=== PATIENT | male | born 1935 | race African-American/Black ===

== ENCOUNTER 2021-05-30 12:04 | Inpatient (IN) ==
[2021-05-30 13:33] LABS: Basophils % 0.5 % (0.0-0.8); Eosinophils % 0.5 % (0.00-10.9); Hematocrit 33.9 VOL% (42.0-52.0); Hemoglobin 10.5 GM/DL (14.0-18.0); Immature Granulocytes % 0.8 %; Immature Granulocytes Absolute 0.03 #; Lymphocytes # 0.8 10*3/uL (1.4-4.0); Lymphocytes % 20.2 % (21.2-54.2); Mean Corpuscular Volume 89.9 FL (87-102); Mean Platelet Volume 9.9 FL (9.6-12.0); Monocytes % 10.9 % (1.7-12.7); Neutrophils % 67.1 % (38.7-73.9); Platelet Count 204 T/CUMM (130-400); Red Blood Count 3.77 MC/CUMM (3.8-5.5); Red Cell Distribution Width 15.1 % (9.3-17.3); White Blood Count 3.9 T/CUMM (4-12)
[2021-05-30 13:42] LABS: INR 1.1; PT Patient Result 12.1 SECS (10.5-12.0); Partial Thromboplastin Time 20.8 SECS (23.8-32.1)
[2021-05-30 13:57] LABS: Alanine Aminotransferase 32 U/L (16-61); Albumin 3.8 G/DL (3.4-5.0); Alkaline Phosphatase 86 U/L (45-117); Aspartate Amino Transferase 22 U/L (0-37); Blood Urea Nitrogen 22 MG/DL (7-18); Calcium 10.1 MG/DL (8.5-10.1); Carbon Dioxide 26 MMOL/L (21-32); Estimated Glom Filtration Rate 66 ML/MIN; Glucose 217 MG/DL (74-106); Osmolality,Calculated 290.3 MOS/KG (273-304); Potassium 3.4 MMOL/L (3.5-5.1); Sodium 141 MMOL/L (136-145); Total Protein 7.6 G/DL (6.4-8.2)
[2021-05-30] MEDS ORDERED: DILTIAZEM 50 MG/10 ML VIAL IV STA (14:13)
[2021-05-30] MEDS: DILTIAZEM INJ 100 MG in SODIUM CHLORIDE 0.9% 100 ML IV SCH ×2 (14:50→20:41)
[2021-05-30 14:52] LABS: Bilirubin,Urine Negative (Negative); Blood, Urine Negative (Negative); Glucose,Urine (UA) Negative (Negative); Hyaline Casts,Urine 4 /LPF (0-3); Ketones,Urine Negative (Negative); Mucus,Urine Occasional /LPF (Occasional); Nitrite,Urine Negative (Negative); Protein,Urine 100 MG/DL; RBC,Urine 2 /HPF (0-4); Urine Appearance CLEAR (Clear); Urine Color Yellow (Yellow); Urine Specific Gravity 1.017 (1.001-1.035)
[2021-05-30] MEDS ORDERED: ONDANSETRON 4 MG/2 ML VIAL IV PRN (16:05)
[2021-05-30] MEDS ORDERED: GLUCAGON 1 MG VIAL IM PRN (16:05)
[2021-05-30] MEDS ORDERED: ACETAMINOPHEN 325 MG TABLET PO PRN (16:05)
[2021-05-30] MEDS ORDERED: ASPIRIN 300 MG SUPP RECTAL STA (16:09)
[2021-05-30] MEDS ORDERED: AZITHROMYCIN INJ 500 MG in SODIUM CHLORIDE 0.9% 250 ML IV STA (16:11)
[2021-05-30] MEDS ORDERED: cefTRIAXone 1,000 MG VIAL IM STA (16:11)
[2021-05-30] MEDS ORDERED: DEXTROSE 50% 25 GM/50 ML SYRINGE IV PRN (16:12)
[2021-05-30] MEDS: INSULIN LISPRO 100 UNIT/ML SUBCUT SCH ×2 (16:30→22:39)
[2021-05-30 16:57] LABS: Risk Ratio 2.31; VLDL Cholesterol 12.6 MG/DL
[2021-05-30] MEDS: cefTRIAXone 1,000 MG in SODIUM CHLORIDE 0.9% 100 ML IV SCH (19:13)
[2021-05-30] MEDS: POTASSIUM CHLORIDE RIDER 10 MEQ/100 ML PREMIX IV SCH ×2 (19:45→20:50)
[2021-05-30] MEDS ORDERED: LORazepam 2 MG/1 ML VIAL IV STA (20:00)
[2021-05-30] MEDS: APIXABAN 2.5 MG TABLET PO SCH (22:38)
[2021-05-30] MEDS: MEGESTROL 40 MG TABLET PO SCH (22:39)
[2021-05-30] MEDS: MEMANTINE 5 MG TABLET PO SCH (22:39)
[2021-05-31 01:34] LABS: Basophils % 0.4 % (0.0-0.8); Eosinophils % 0.2 % (0.00-10.9); Hematocrit 32.7 VOL% (42.0-52.0); Hemoglobin 10.1 GM/DL (14.0-18.0); Immature Granulocytes % 0.4 %; Immature Granulocytes Absolute 0.02 #; Mean Corpuscular HGB Conc 30.9 GM/DL (32-36); Mean Corpuscular Volume 90.3 FL (87-102); Monocytes % 12.5 % (1.7-12.7); Neutrophils % 68.5 % (38.7-73.9); Platelet Count 179 T/CUMM (130-400); Red Blood Count 3.62 MC/CUMM (3.8-5.5); Red Cell Distribution Width 15.2 % (9.3-17.3); White Blood Count 5.5 T/CUMM (4-12)
[2021-05-31 01:50] LABS: Calcium 9.5 MG/DL (8.5-10.1); Osmolality,Calculated 288.1 MOS/KG (273-304); Potassium 3.6 MMOL/L (3.5-5.1)
[2021-05-31] MEDS: INSULIN LISPRO 100 UNIT/ML SUBCUT SCH ×4 (08:34→21:46)
[2021-05-31] MEDS: DILTIAZEM 30 MG TABLET PO SCH ×4 (08:50→21:28)
[2021-05-31] MEDS: MEMANTINE 5 MG TABLET PO SCH ×2 (08:50→21:28)
[2021-05-31] MEDS: MEGESTROL 40 MG TABLET PO SCH ×2 (08:50→21:28)
[2021-05-31] MEDS: APIXABAN 2.5 MG TABLET PO SCH (08:51)
[2021-05-31] MEDS: ASPIRIN 300 MG SUPP RECTAL SCH (14:24)
[2021-05-31] MEDS: cefTRIAXone 1,000 MG in SODIUM CHLORIDE 0.9% 100 ML IV SCH (16:42)
[2021-05-31] MEDS: AZITHROMYCIN INJ 250 MG in SODIUM CHLORIDE 0.9% 250 ML IV SCH (18:17)
[2021-05-31] MEDS: ATORVASTATIN 80 MG TABLET PO SCH (21:28)
[2021-05-31] MEDS: APIXABAN 5 MG TABLET PO SCH (21:28)
[2021-05-31] MEDS ORDERED: MELATONIN 3 MG TABLET PO PRN (23:44)
[2021-06-01 06:09] LABS: Basophils % 0.5 % (0.0-0.8); Eosinophils % 0.5 % (0.00-10.9); Hematocrit 33.4 VOL% (42.0-52.0); Hemoglobin 10.7 GM/DL (14.0-18.0); Immature Granulocytes % 0.7 %; Immature Granulocytes Absolute 0.04 #; Lymphocytes # 1.1 10*3/uL (1.4-4.0); Lymphocytes % 18.4 % (21.2-54.2); Mean Corpuscular Volume 89.3 FL (87-102); Mean Platelet Volume 10.2 FL (9.6-12.0); Monocytes % 10.2 % (1.7-12.7); Neutrophils % 69.7 % (38.7-73.9); Platelet Count 205 T/CUMM (130-400); Red Blood Count 3.74 MC/CUMM (3.8-5.5); Red Cell Distribution Width 15.1 % (9.3-17.3); White Blood Count 5.7 T/CUMM (4-12)
[2021-06-01 06:13] LABS: Calcium 9.7 MG/DL (8.5-10.1); Osmolality,Calculated 280.5 MOS/KG (273-304); Potassium 3.3 MMOL/L (3.5-5.1)
[2021-06-01] MEDS: INSULIN LISPRO 100 UNIT/ML SUBCUT SCH ×4 (07:38→22:10)
[2021-06-01] MEDS: MEGESTROL 40 MG TABLET PO SCH ×2 (09:05→22:10)
[2021-06-01] MEDS: DILTIAZEM 60 MG TABLET PO SCH ×3 (09:06→22:10)
[2021-06-01] MEDS: MEMANTINE 5 MG TABLET PO SCH ×2 (09:06→22:10)
[2021-06-01] MEDS: APIXABAN 5 MG TABLET PO SCH ×2 (09:07→22:10)
[2021-06-01] MEDS: POTASSIUM CHLORIDE RIDER 10 MEQ/100 ML PREMIX IV PRN ×4 (10:51→16:53)
[2021-06-01] MEDS ORDERED: FUROSEMIDE 20 MG/2 ML VIAL IV ONE (11:14)
[2021-06-01] MEDS: ASPIRIN 300 MG SUPP RECTAL SCH (11:19)
[2021-06-01 16:06] LABS: Bacteria,Urine Occasional /HPF (Few); Bilirubin,Urine Negative (Negative); Blood, Urine Large mg/dL (Negative); Glucose,Urine (UA) Negative (Negative); Ketones,Urine Negative (Negative); Mucus,Urine Occasional /LPF (Occasional); Nitrite,Urine Negative (Negative); Protein,Urine 30 MG/DL; RBC,Urine 101 /HPF (0-4); Squamous Epithelial Cell,Urine Occasional /HPF (0-10); Urine Appearance CLEAR (Clear); Urine Color Straw (Yellow); Urine Specific Gravity 1.009 (1.001-1.035); Urine Urobilinogen < 2.0 EU/DL (<2.0)
[2021-06-01] MEDS: cefTRIAXone 1,000 MG in SODIUM CHLORIDE 0.9% 100 ML IV SCH (16:32)
[2021-06-01] MEDS: AZITHROMYCIN INJ 250 MG in SODIUM CHLORIDE 0.9% 250 ML IV SCH (17:31)
[2021-06-01] MEDS: ATORVASTATIN 80 MG TABLET PO SCH (22:10)
[2021-06-02 05:58] LABS: Basophils % 0.6 % (0.0-0.8); Eosinophils % 0.8 % (0.00-10.9); Hemoglobin 10.2 GM/DL (14.0-18.0); Immature Granulocytes % 0.4 %; Immature Granulocytes Absolute 0.02 #; Lymphocytes % 19.4 % (21.2-54.2); Mean Corpuscular HGB Conc 31.9 GM/DL (32-36); Mean Corpuscular Volume 87.9 FL (87-102); Mean Platelet Volume 9.6 FL (9.6-12.0); Monocytes % 11.1 % (1.7-12.7); Neutrophils % 67.7 % (38.7-73.9); Platelet Count 179 T/CUMM (130-400); Red Blood Count 3.64 MC/CUMM (3.8-5.5)
[2021-06-02 06:15] LABS: Osmolality,Calculated 277.7 MOS/KG (273-304); Potassium 3.2 MMOL/L (3.5-5.1)
[2021-06-02] MEDS: INSULIN LISPRO 100 UNIT/ML SUBCUT SCH (08:06)
[2021-06-02] MEDS ORDERED: ASPIRIN EC 81 MG TABLET PO SCH (09:00)
[2021-06-02] MEDS: ASPIRIN 300 MG SUPP RECTAL SCH (09:27)
[2021-06-02] MEDS: APIXABAN 5 MG TABLET PO SCH (09:34)
[2021-06-02] MEDS: MEMANTINE 5 MG TABLET PO SCH (09:34)
[2021-06-02] MEDS: DILTIAZEM 60 MG TABLET PO SCH (09:35)
[2021-06-02] MEDS: MEGESTROL 40 MG TABLET PO SCH (09:35)
[2021-06-02 11:27] VITALS: BP 124/94
== END 2021-06-02 11:48 | DRG 64 ==
LOC: EDBD → SUATTDRO → EDUNIT# → N.ED 12:04 → N.EDINP 16:05 → N.TELES 20:06
PROVIDERS: ADMIT Internal Medicine; ATTEND Internal Medicine

== ENCOUNTER 2021-06-16 08:24 | Inpatient (IN) ==
[2021-06-16] MEDS ORDERED: DILTIAZEM 50 MG/10 ML VIAL IV STA (09:46)
[2021-06-16] MEDS ORDERED: DILTIAZEM INJ 100 MG in SODIUM CHLORIDE 0.9% 100 ML IV SCH (10:00)
[2021-06-16 10:36] LABS: Basophils % 0.6 % (0.0-0.8); Eosinophils % 0.2 % (0.00-10.9); Hematocrit 31.8 VOL% (42.0-52.0); Hemoglobin 9.9 GM/DL (14.0-18.0); Immature Granulocytes % 0.4 %; Immature Granulocytes Absolute 0.02 #; Lymphocytes # 0.9 10*3/uL (1.4-4.0); Lymphocytes % 18.6 % (21.2-54.2); Mean Corpuscular HGB Conc 31.1 GM/DL (32-36); Mean Corpuscular Volume 87.6 FL (87-102); Mean Platelet Volume 10.4 FL (9.6-12.0); Monocytes % 11.4 % (1.7-12.7); Neutrophils % 68.8 % (38.7-73.9); Platelet Count 283 T/CUMM (130-400); Red Blood Count 3.63 MC/CUMM (3.8-5.5); Red Cell Distribution Width 15.9 % (9.3-17.3); White Blood Count 4.8 T/CUMM (4-12)
[2021-06-16 10:48] LABS: INR 1.2
[2021-06-16 10:49] LABS: Albumin 3.8 G/DL (3.4-5.0); Bilirubin,Total 0.6 MG/DL (0.20-1.00); Calcium 10.2 MG/DL (8.5-10.1); Osmolality,Calculated 294.4 MOS/KG (273-304); Potassium 4.1 MMOL/L (3.5-5.1)
[2021-06-16] MEDS ORDERED: DEXAMETHASONE 4 MG/1 ML VIAL IV STA (11:31)
[2021-06-16 11:49] LABS: Bilirubin,Urine Negative (Negative); Blood, Urine Negative (Negative); Glucose,Urine (UA) Negative (Negative); Hyaline Casts,Urine 4 /LPF (0-3); Ketones,Urine 5 mg/dL (Negative); Mucus,Urine Moderate /LPF (Occasional); Nitrite,Urine Negative (Negative); Protein,Urine 100 MG/DL; RBC,Urine 2 /HPF (0-4); Urine Appearance CLEAR (Clear); Urine Color Yellow (Yellow); Urine Specific Gravity 1.038 (1.001-1.035); Urine Urobilinogen < 2.0 EU/DL (<2.0)
[2021-06-16] MEDS ORDERED: ONDANSETRON 4 MG/2 ML VIAL IV PRN (12:05)
[2021-06-16] MEDS: LORazepam 2 MG/1 ML VIAL IV PRN (18:44)
[2021-06-16] MEDS: MORPHINE 2 MG/1 ML SYRINGE IV PRN (23:52)
[2021-06-17] MEDS: LORazepam 2 MG/1 ML VIAL IV PRN ×3 (03:24→19:32)
[2021-06-17] MEDS: MORPHINE 2 MG/1 ML SYRINGE IV PRN ×4 (06:13→22:53)
[2021-06-18] MEDS: LORazepam 2 MG/1 ML VIAL IV PRN ×2 (00:30→10:15)
[2021-06-18] MEDS: MORPHINE 2 MG/1 ML SYRINGE IV PRN (09:01)
[2021-06-18 12:32] VITALS: BP 127/104
== END 2021-06-18 14:02 | disposition hospice, inpatient (51) | DRG 951 ==
LOC: EDBD → EDUNIT# → N.ED 08:24 → N.EDINP 12:02 → SUATTDRO 12:02 → N.EDINP 16:38 → N.TELEN 17:01
PROVIDERS: ADMIT Internal Medicine; ATTEND Hospitalist

== ENCOUNTER 2021-06-21 11:52 | Inpatient (IN) ==
[2021-06-21] MEDS ORDERED: DILTIAZEM 50 MG/10 ML VIAL IV STA (12:14)
[2021-06-21] MEDS ORDERED: ETOMIDATE 20 MG/10 ML VIAL IV ONE ×3 (12:24→15:05)
[2021-06-21] MEDS: DILTIAZEM INJ 100 MG in SODIUM CHLORIDE 0.9% 100 ML IV SCH ×2 (12:30→22:05)
[2021-06-21] MEDS ORDERED: ROCURONIUM 100 MG/10 ML VIAL IV ONE ×2 (12:33→15:07)
[2021-06-21 12:50] LABS: Eosinophils % 0.1 % (0.00-10.9); Hematocrit 30.8 VOL% (42.0-52.0); Hemoglobin 9.3 GM/DL (14.0-18.0); Immature Granulocytes % 0.7 %; Immature Granulocytes Absolute 0.06 #; Lymphocytes # 0.5 10*3/uL (1.4-4.0); Lymphocytes % 5.9 % (21.2-54.2); Mean Corpuscular HGB Conc 30.2 GM/DL (32-36); Mean Platelet Volume 11.4 FL (9.6-12.0); Monocytes % 7.3 % (1.7-12.7); NRBC # 0.06 10*3/uL; Platelet Count 213 T/CUMM (130-400); Red Blood Count 3.46 MC/CUMM (3.8-5.5); Red Cell Distribution Width 16.1 % (9.3-17.3)
[2021-06-21 12:59] LABS: INR 1.7; PT Patient Result 18.4 SECS (10.5-12.0); Partial Thromboplastin Time 25.9 SECS (23.8-32.1)
[2021-06-21 13:10] LABS: Bilirubin,Total 1.5 MG/DL (0.20-1.00); Calcium 10.2 MG/DL (8.5-10.1); Osmolality,Calculated 326.7 MOS/KG (273-304); Potassium 4.3 MMOL/L (3.5-5.1); Thyroid Stimulating Hormone 1.85 uIU/ml (0.358-3.74); Total Protein 6.5 G/DL (6.4-8.2)
[2021-06-21] MEDS ORDERED: ALBUTEROL 2.5 MG/3 ML NEB RESP TX PRN (13:39)
[2021-06-21] MEDS ORDERED: ONDANSETRON 4 MG/2 ML VIAL IV PRN (13:39)
[2021-06-21 14:21] LABS: ABG Base Excess -3.7 MMOL/L (-2.5-2.5); ABG HCO3 21.4 MMOL/L (20-26); ABG Oxygen Saturation 99.9 % (95-100); ABG PCO2 30.8 MM HG (35-48); ABG PH 7.421 (7.35-7.45); ABG TCO2 18.2 MMOL/L (23-27)
[2021-06-21] MEDS: PANTOPRAZOLE 40 MG VIAL IV SCH (14:21)
[2021-06-21] MEDS: cefTRIAXone 1,000 MG in SODIUM CHLORIDE 0.9% 100 ML IV SCH (14:27)
[2021-06-21] MEDS: LACTATED RINGERS 1,000 ML IV SCH ×2 (15:00→23:45)
[2021-06-21 15:58] LABS: Bilirubin,Urine Negative (Negative); Blood, Urine Negative (Negative); Glucose,Urine (UA) Negative (Negative); Hyaline Casts,Urine 5 /LPF (0-3); Ketones,Urine 5 mg/dL (Negative); Mucus,Urine Occasional /LPF (Occasional); Nitrite,Urine Negative (Negative); Protein,Urine 100 MG/DL; RBC,Urine 2 /HPF (0-4); Urine Appearance Slightly Hazy (Clear); Urine Color Amber (Yellow); Urine Specific Gravity 1.023 (1.001-1.035)
[2021-06-21 17:10] LABS: Barbiturates Screen,Urine Negative (Negative); Benzodiazepines Screen,Urine Negative (Negative); Cannabinoid Screen,Urine Negative (Negative); Opiate Screen,Urine Positive (Negative); Phencyclidine Screen,Urine Negative (Negative)
[2021-06-22] MEDS: DILTIAZEM INJ 100 MG in SODIUM CHLORIDE 0.9% 100 ML IV SCH ×3 (03:19→17:45)
[2021-06-22 05:07] LABS: Calcium 9.9 MG/DL (8.5-10.1); Osmolality,Calculated 321.9 MOS/KG (273-304); Potassium 4.1 MMOL/L (3.5-5.1)
[2021-06-22 05:18] LABS: Basophils % 0.1 % (0.0-0.8); Eosinophils % 0.5 % (0.00-10.9); Hemoglobin 9.6 GM/DL (14.0-18.0); Immature Granulocytes % 0.5 %; Immature Granulocytes Absolute 0.04 #; Lymphocytes # 0.4 10*3/uL (1.4-4.0); Lymphocytes % 4.8 % (21.2-54.2); Mean Corpuscular Volume 89.9 FL (87-102); Mean Platelet Volume 11.5 FL (9.6-12.0); Monocytes % 6.6 % (1.7-12.7); NRBC # 0.04 10*3/uL; Neutrophils % 87.5 % (38.7-73.9); Platelet Count 183 T/CUMM (130-400); Red Blood Count 3.56 MC/CUMM (3.8-5.5); Red Cell Distribution Width 16.1 % (9.3-17.3); White Blood Count 7.8 T/CUMM (4-12)
[2021-06-22 06:17] LABS: Hypochromia Slight; Lymphocytes 3 % (20-55); Microcytosis Slight; Platelet Estimate Adequate; Segmented Neutrophils 92 % (50-85); Total Cells Counted 100
[2021-06-22 06:26] LABS: Bilirubin,Urine Negative (Negative); Blood, Urine Moderate mg/dL (Negative); Glucose,Urine (UA) Negative (Negative); Ketones,Urine 5 mg/dL (Negative); Mucus,Urine Occasional /LPF (Occasional); Nitrite,Urine Negative (Negative); Protein,Urine 30 MG/DL; RBC,Urine 7 /HPF (0-4); Urine Appearance Slightly Hazy (Clear); Urine Color Yellow (Yellow); Urine Specific Gravity 1.019 (1.001-1.035)
[2021-06-22 06:39] LABS: ABG Base Excess -0.7 MMOL/L (-2.5-2.5); ABG HCO3 23.9 MMOL/L (20-26); ABG Oxygen Saturation 99.7 % (95-100); ABG PCO2 36.9 MM HG (35-48); ABG PH 7.414 (7.35-7.45); ABG TCO2 21.6 MMOL/L (23-27)
[2021-06-22] MEDS: LACTATED RINGERS 1,000 ML IV SCH ×4 (07:07→23:31)
[2021-06-22] MEDS ORDERED: LACTATED RINGERS 1,000 ML IV SCH (11:00)
[2021-06-22 11:24] LABS: Calcium 9.3 MG/DL (8.5-10.1); Osmolality,Calculated 318.9 MOS/KG (273-304); Potassium 3.7 MMOL/L (3.5-5.1)
[2021-06-22 11:37] LABS: INR 1.5; PT Patient Result 16.4 SECS (10.5-12.0)
[2021-06-22] MEDS: cefTRIAXone 1,000 MG in SODIUM CHLORIDE 0.9% 100 ML IV SCH (14:17)
[2021-06-22] MEDS: PANTOPRAZOLE 40 MG VIAL IV SCH (15:50)
[2021-06-22] MEDS ORDERED: GLUCAGON 1 MG VIAL IM PRN (16:10)
[2021-06-22] MEDS ORDERED: DEXTROSE 50% 25 GM/50 ML SYRINGE IV PRN (16:18)
[2021-06-22] MEDS: INSULIN REGULAR 100 UNIT/ML SUBCUT SCH ×2 (18:56→23:25)
[2021-06-23] MEDS: DILTIAZEM INJ 100 MG in SODIUM CHLORIDE 0.9% 100 ML IV SCH ×2 (00:46→14:50)
[2021-06-23 04:04] LABS: ABG Base Excess 1.5 MMOL/L (-2.5-2.5); ABG HCO3 25.7 MMOL/L (20-26); ABG Oxygen Saturation 99.4 % (95-100); ABG PCO2 32.5 MM HG (35-48); ABG PH 7.486 (7.35-7.45); ABG TCO2 22.5 MMOL/L (23-27); Allen Test Positive; Pt O2 Delivery Device Ventilator
[2021-06-23 05:22] LABS: Eosinophils % 0.1 % (0.00-10.9); Hematocrit 29.8 VOL% (42.0-52.0); Hemoglobin 9.1 GM/DL (14.0-18.0); Immature Granulocytes % 0.4 %; Immature Granulocytes Absolute 0.03 #; Lymphocytes # 0.4 10*3/uL (1.4-4.0); Lymphocytes % 5.5 % (21.2-54.2); Mean Corpuscular HGB Conc 30.5 GM/DL (32-36); Mean Corpuscular Volume 89.2 FL (87-102); Mean Platelet Volume 11.2 FL (9.6-12.0); Monocytes % 7.6 % (1.7-12.7); NRBC # 0.03 10*3/uL; Neutrophils % 86.4 % (38.7-73.9); Platelet Count 145 T/CUMM (130-400); Red Blood Count 3.34 MC/CUMM (3.8-5.5); Red Cell Distribution Width 16.1 % (9.3-17.3); White Blood Count 7.1 T/CUMM (4-12)
[2021-06-23 05:44] LABS: Calcium 9.7 MG/DL (8.5-10.1); Osmolality,Calculated 321.4 MOS/KG (273-304); Potassium 3.7 MMOL/L (3.5-5.1)
[2021-06-23 05:48] LABS: Burr Cells Slight; Hypochromia Slight; Lymphocytes 2 % (20-55); Microcytosis Slight; Ovalocytes Slight; Platelet Estimate Adequate; Segmented Neutrophils 93 % (50-85); Total Cells Counted 100
[2021-06-23] MEDS: INSULIN REGULAR 100 UNIT/ML SUBCUT SCH ×3 (06:12→17:36)
[2021-06-23] MEDS ORDERED: PANTOPRAZOLE 40 MG VIAL IV SCH (09:00)
[2021-06-23] MEDS ORDERED: POTASSIUM PHOSPHATE 30 MMOL in SODIUM CHLORIDE 0.9% 250 ML IV ONE (10:00)
[2021-06-23] MEDS ORDERED: ONDANSETRON 4 MG/2 ML VIAL IM PRN (13:45)
[2021-06-23] MEDS ORDERED: MORPHINE 2 MG/1 ML SYRINGE IM PRN (13:45)
[2021-06-23] MEDS ORDERED: DIGOXIN 0.5 MG/2 ML AMP IV ONE (13:46)
[2021-06-23] MEDS: DILTIAZEM 30 MG TABLET PO PRN ×2 (14:17→23:36)
[2021-06-23] MEDS: cefTRIAXone 1,000 MG in SODIUM CHLORIDE 0.9% 100 ML IV SCH (14:17)
[2021-06-23] MEDS: LACTATED RINGERS 1,000 ML IV SCH (14:51)
[2021-06-24] MEDS: INSULIN REGULAR 100 UNIT/ML SUBCUT SCH ×4 (00:34→17:58)
[2021-06-24 04:31] LABS: ABG Base Excess 1.5 MMOL/L (-2.5-2.5); ABG HCO3 24.6 MMOL/L (20-26); ABG Oxygen Saturation 97.9 % (95-100); ABG PCO2 32.6 MM HG (35-48); ABG PH 7.495 (7.35-7.45); ABG PO2 103.3 MM HG (80-95); ABG TCO2 25.6 MMOL/L (23-27)
[2021-06-24 05:01] LABS: Basophils % 0.1 % (0.0-0.8); Eosinophils % 0.3 % (0.00-10.9); Hematocrit 28.6 VOL% (42.0-52.0); Hemoglobin 8.7 GM/DL (14.0-18.0); Immature Granulocytes % 0.5 %; Immature Granulocytes Absolute 0.04 #; Lymphocytes # 0.6 10*3/uL (1.4-4.0); Lymphocytes % 7.4 % (21.2-54.2); Mean Corpuscular HGB Conc 30.4 GM/DL (32-36); Mean Corpuscular Volume 87.2 FL (87-102); Mean Platelet Volume 12.8 FL (9.6-12.0); Monocytes % 7.9 % (1.7-12.7); NRBC # 0.04 10*3/uL; Neutrophils % 83.8 % (38.7-73.9); Red Blood Count 3.28 MC/CUMM (3.8-5.5); Red Cell Distribution Width 16.1 % (9.3-17.3); White Blood Count 7.6 T/CUMM (4-12)
[2021-06-24 05:04] LABS: Platelet Count 98 T/CUMM (130-400)
[2021-06-24 05:14] LABS: Calcium 9.8 MG/DL (8.5-10.1); Osmolality,Calculated 318.7 MOS/KG (273-304); Potassium 3.6 MMOL/L (3.5-5.1)
[2021-06-24 05:21] LABS: Acanthocytes Few; Hypochromia 1+; Microcytosis 1+
[2021-06-24 05:22] LABS: Burr Cells Slight; Ovalocytes Few; Target Cells Few
[2021-06-24] MEDS: cefTRIAXone 1,000 MG in SODIUM CHLORIDE 0.9% 100 ML IV SCH (09:53)
[2021-06-24] MEDS: OMEPRAZOLE ODT 20 MG TABLET PEG SCH (09:56)
[2021-06-24] MEDS: DIGOXIN 0.25 MG TABLET PEG SCH (12:47)
[2021-06-25] MEDS: INSULIN REGULAR 100 UNIT/ML SUBCUT SCH ×4 (00:49→18:48)
[2021-06-25 06:14] LABS: Calcium 9.8 MG/DL (8.5-10.1); Osmolality,Calculated 320.9 MOS/KG (273-304); Potassium 3.7 MMOL/L (3.5-5.1)
[2021-06-25] MEDS: cefTRIAXone 1,000 MG in SODIUM CHLORIDE 0.9% 100 ML IV SCH (10:40)
[2021-06-25] MEDS: DILTIAZEM 30 MG TABLET PO SCH ×3 (10:44→22:00)
[2021-06-25] MEDS: OMEPRAZOLE ODT 20 MG TABLET PEG SCH (10:49)
[2021-06-25] MEDS: DIGOXIN 0.25 MG TABLET PEG SCH (13:35)
[2021-06-25] MEDS: ACETYLCYSTEINE 20% 800 MG/4 ML VIAL RESP TX SCH (14:55)
[2021-06-25] MEDS: ALBUTEROL 2.5 MG/3 ML NEB RESP TX SCH ×2 (14:55→21:04)
[2021-06-26] MEDS: ACETYLCYSTEINE 20% 800 MG/4 ML VIAL RESP TX SCH ×3 (01:42→14:53)
[2021-06-26] MEDS: ALBUTEROL 2.5 MG/3 ML NEB RESP TX SCH ×4 (01:43→21:01)
[2021-06-26] MEDS: INSULIN REGULAR 100 UNIT/ML SUBCUT SCH ×4 (06:00→17:58)
[2021-06-26 10:03] LABS: Calcium 9.1 MG/DL (8.5-10.1); Osmolality,Calculated 309.4 MOS/KG (273-304); Potassium 3.7 MMOL/L (3.5-5.1)
[2021-06-26] MEDS: cefTRIAXone 1,000 MG in SODIUM CHLORIDE 0.9% 100 ML IV SCH (11:43)
[2021-06-26] MEDS: OMEPRAZOLE ODT 20 MG TABLET PEG SCH (11:43)
[2021-06-26] MEDS: DILTIAZEM 30 MG TABLET PO SCH ×3 (11:44→22:13)
[2021-06-26] MEDS: DIGOXIN 0.25 MG TABLET PEG SCH (13:45)
[2021-06-27] MEDS: ACETYLCYSTEINE 20% 800 MG/4 ML VIAL RESP TX SCH ×3 (00:40→15:12)
[2021-06-27] MEDS: ALBUTEROL 2.5 MG/3 ML NEB RESP TX SCH ×3 (00:40→14:10)
[2021-06-27] MEDS: INSULIN REGULAR 100 UNIT/ML SUBCUT SCH ×3 (01:38→14:35)
[2021-06-27 08:48] LABS: Calcium 8.8 MG/DL (8.5-10.1); Osmolality,Calculated 301.4 MOS/KG (273-304); Potassium 3.4 MMOL/L (3.5-5.1)
[2021-06-27] MEDS: DILTIAZEM 30 MG TABLET PO SCH ×2 (09:03→14:35)
[2021-06-27] MEDS: cefTRIAXone 1,000 MG in SODIUM CHLORIDE 0.9% 100 ML IV SCH (09:03)
[2021-06-27] MEDS: OMEPRAZOLE ODT 20 MG TABLET PEG SCH (09:05)
[2021-06-27] MEDS ORDERED: POTASSIUM BICARB EFFERVESCENT 20 MEQ TAB.EFF PO ONE (11:30)
[2021-06-27 12:10] VITALS: BP 152/87
[2021-06-27] MEDS: DIGOXIN 0.25 MG TABLET PEG SCH (14:35)
== END 2021-06-27 17:22 | DRG 208 ==
LOC: EDBD → EDUNIT# → N.ED 11:52 → SUATTDRO 13:39 → N.EDINP 13:39 → N.ICU 14:46 → N.5E 06-23 16:55
PROVIDERS: ADMIT Internal Medicine; ATTEND Internal Medicine
PROC: EGDWPEG (ICD-10-PCS; 2021-06-22 11:50)

== ENCOUNTER 2021-06-28 08:43 | Inpatient (IN) ==
[2021-06-28] MEDS ORDERED: PANTOPRAZOLE 40 MG VIAL IV STA (09:12)
[2021-06-28 10:38] LABS: Basophils % 0.1 % (0.0-0.8); Eosinophils # 0.1 10*3/uL (0.0-0.87); Eosinophils % 0.5 % (0.00-10.9); Immature Granulocytes % 0.9 %; Immature Granulocytes Absolute 0.08 #; Lymphocytes # 0.7 10*3/uL (1.4-4.0); Lymphocytes % 7.9 % (21.2-54.2); Mean Corpuscular HGB Conc 30.8 GM/DL (32-36); Mean Corpuscular Volume 86.7 FL (87-102); Mean Platelet Volume 11.7 FL (9.6-12.0); Monocytes % 7.9 % (1.7-12.7); NRBC # 0.03 10*3/uL; Neutrophils % 82.7 % (38.7-73.9); Platelet Count 143 T/CUMM (130-400); Red Cell Distribution Width 16.6 % (9.3-17.3); White Blood Count 9.1 T/CUMM (4-12)
[2021-06-28 10:50] LABS: INR 1.2; PT Patient Result 12.9 SECS (10.5-12.0)
[2021-06-28 11:05] LABS: Albumin 2.3 G/DL (3.4-5.0); Bilirubin,Total 1.9 MG/DL (0.20-1.00); Calcium 9.1 MG/DL (8.5-10.1); Osmolality,Calculated 298.4 MOS/KG (273-304); Potassium 4.1 MMOL/L (3.5-5.1); Total Protein 5.8 G/DL (6.4-8.2)
[2021-06-28] MEDS ORDERED: GLUCAGON 1 MG VIAL IM PRN (11:05)
[2021-06-28] MEDS ORDERED: ONDANSETRON 4 MG/2 ML VIAL IV PRN (11:05)
[2021-06-28] MEDS ORDERED: ACETAMINOPHEN 325 MG TABLET PO PRN (11:05)
[2021-06-28] MEDS ORDERED: DEXTROSE 50% 25 GM/50 ML SYRINGE IV PRN (11:05)
[2021-06-28] MEDS ORDERED: ALBUTEROL 2.5 MG/3 ML NEB RESP TX PRN (11:07)
[2021-06-28] MEDS: INSULIN LISPRO 100 UNIT/ML SUBCUT SCH ×2 (12:54→19:05)
[2021-06-28 14:31] LABS: Hematocrit 23.4 VOL% (42.0-52.0); Hemoglobin 7.3 GM/DL (14.0-18.0)
[2021-06-28] MEDS ORDERED: SODIUM CHLORIDE 0.9% 1,000 ML IV PRN (14:39)
[2021-06-28 17:20] LABS: Hematocrit 22.1 VOL% (42.0-52.0)
[2021-06-28] MEDS: DILTIAZEM 30 MG TABLET PO SCH ×2 (18:38→21:20)
[2021-06-28] MEDS ORDERED: ATORVASTATIN 80 MG TABLET PEG SCH (21:00)
[2021-06-28] MEDS: PANTOPRAZOLE 40 MG VIAL IV SCH (21:18)
[2021-06-28] MEDS: AMOXICILLIN/CLAV 875 MG TABLET PEG SCH (21:20)
[2021-06-28] MEDS: MEMANTINE 5 MG TABLET PER TUBE SCH (21:20)
[2021-06-28 23:25] LABS: Hematocrit 26.4 VOL% (42.0-52.0)
[2021-06-28 23:27] LABS: Hemoglobin 8.2 GM/DL (14.0-18.0)
[2021-06-29] MEDS: INSULIN LISPRO 100 UNIT/ML SUBCUT SCH ×4 (00:42→18:37)
[2021-06-29 05:11] LABS: Basophils % 0.2 % (0.0-0.8); Eosinophils % 0.2 % (0.00-10.9); Hematocrit 24.7 VOL% (42.0-52.0); Immature Granulocytes % 0.6 %; Immature Granulocytes Absolute 0.05 #; Lymphocytes # 1.1 10*3/uL (1.4-4.0); Mean Corpuscular HGB Conc 32.4 GM/DL (32-36); Mean Corpuscular Volume 82.3 FL (87-102); Mean Platelet Volume 11.3 FL (9.6-12.0); NRBC # 0.06 10*3/uL; Platelet Count 142 T/CUMM (130-400); Red Cell Distribution Width 17.8 % (9.3-17.3); White Blood Count 8.6 T/CUMM (4-12)
[2021-06-29 05:15] LABS: Hematocrit 25.9 VOL% (42.0-52.0); Hemoglobin 8.2 GM/DL (14.0-18.0)
[2021-06-29 05:40] LABS: Calcium 9.1 MG/DL (8.5-10.1); Osmolality,Calculated 300.7 MOS/KG (273-304); Potassium 3.7 MMOL/L (3.5-5.1)
[2021-06-29 10:03] LABS: Albumin 2.1 G/DL (3.4-5.0)
[2021-06-29] MEDS: DILTIAZEM 30 MG TABLET PO SCH ×3 (10:43→22:22)
[2021-06-29] MEDS: AMOXICILLIN/CLAV 875 MG TABLET PEG SCH ×2 (10:43→22:22)
[2021-06-29] MEDS: PANTOPRAZOLE 40 MG VIAL IV SCH ×2 (10:44→22:20)
[2021-06-29] MEDS: MEMANTINE 5 MG TABLET PER TUBE SCH ×2 (10:44→22:23)
[2021-06-29] MEDS: DIGOXIN 0.25 MG TABLET PEG SCH (18:29)
[2021-06-30] MEDS: INSULIN LISPRO 100 UNIT/ML SUBCUT SCH ×4 (02:24→17:36)
[2021-06-30 06:35] LABS: Basophils % 0.1 % (0.0-0.8); Eosinophils # 0.1 10*3/uL (0.0-0.87); Eosinophils % 0.7 % (0.00-10.9); Immature Granulocytes % 0.9 %; Immature Granulocytes Absolute 0.07 #; Lymphocytes % 12.7 % (21.2-54.2); Mean Corpuscular HGB Conc 30.8 GM/DL (32-36); Mean Corpuscular Volume 85.5 FL (87-102); Mean Platelet Volume 11.4 FL (9.6-12.0); Monocytes % 11.5 % (1.7-12.7); NRBC # 0.11 10*3/uL; Neutrophils % 74.1 % (38.7-73.9); Platelet Count 166 T/CUMM (130-400); Red Blood Count 3.04 MC/CUMM (3.8-5.5); Red Cell Distribution Width 18.7 % (9.3-17.3); White Blood Count 7.6 T/CUMM (4-12)
[2021-06-30 06:53] LABS: Calcium 8.9 MG/DL (8.5-10.1); Osmolality,Calculated 302.4 MOS/KG (273-304); Potassium 3.5 MMOL/L (3.5-5.1)
[2021-06-30] MEDS ORDERED: HALOPERIDOL 5 MG/ML AMP IM PRN (08:02)
[2021-06-30] MEDS ORDERED: DEXTROSE 10% 250 ML IV ONE (08:10)
[2021-06-30] MEDS ORDERED: FUROSEMIDE 40 MG/4 ML VIAL IV ONE (08:45)
[2021-06-30] MEDS: PANTOPRAZOLE 40 MG VIAL IV SCH ×2 (09:06→21:50)
[2021-06-30 16:50] LABS: Hematocrit 25.2 VOL% (42.0-52.0); Hemoglobin 7.8 GM/DL (14.0-18.0)
[2021-06-30] MEDS: DILTIAZEM 30 MG TABLET PO SCH ×2 (17:31→21:53)
[2021-06-30] MEDS: AMOXICILLIN/CLAV 875 MG TABLET PEG SCH ×2 (17:31→21:53)
[2021-06-30] MEDS: MEMANTINE 5 MG TABLET PER TUBE SCH ×2 (17:32→21:54)
[2021-06-30] MEDS: DIGOXIN 0.25 MG TABLET PEG SCH (17:37)
[2021-06-30] MEDS ORDERED: SODIUM CHLORIDE 0.9% 1,000 ML IV PRN (18:34)
[2021-06-30 23:40] LABS: Hematocrit 31.5 VOL% (42.0-52.0); Hemoglobin 9.3 GM/DL (14.0-18.0)
[2021-07-01] MEDS: INSULIN LISPRO 100 UNIT/ML SUBCUT SCH ×4 (00:49→18:36)
[2021-07-01 07:37] LABS: Hematocrit 25.1 VOL% (42.0-52.0); Hemoglobin 7.8 GM/DL (14.0-18.0)
[2021-07-01 07:38] LABS: Basophils % 0.2 % (0.0-0.8); Eosinophils # 0.1 10*3/uL (0.0-0.87); Eosinophils % 1.2 % (0.00-10.9); Hematocrit 24.3 VOL% (42.0-52.0); Hemoglobin 7.5 GM/DL (14.0-18.0); Immature Granulocytes % 0.6 %; Immature Granulocytes Absolute 0.04 #; Lymphocytes # 1.2 10*3/uL (1.4-4.0); Lymphocytes % 17.5 % (21.2-54.2); Mean Corpuscular HGB Conc 30.9 GM/DL (32-36); Mean Corpuscular Volume 85.9 FL (87-102); Mean Platelet Volume 10.8 FL (9.6-12.0); Monocytes % 10.8 % (1.7-12.7); NRBC # 0.07 10*3/uL; Neutrophils % 69.7 % (38.7-73.9); Platelet Count 168 T/CUMM (130-400); Red Blood Count 2.83 MC/CUMM (3.8-5.5); Red Cell Distribution Width 18.8 % (9.3-17.3); White Blood Count 6.6 T/CUMM (4-12)
[2021-07-01 08:02] LABS: Calcium 8.7 MG/DL (8.5-10.1); Osmolality,Calculated 299.1 MOS/KG (273-304); Potassium 3.4 MMOL/L (3.5-5.1)
[2021-07-01] MEDS: OMEPRAZOLE ODT 20 MG TABLET PO SCH ×2 (09:36→23:04)
[2021-07-01] MEDS: AMOXICILLIN/CLAV 875 MG TABLET PEG SCH ×2 (09:37→21:39)
[2021-07-01] MEDS: DILTIAZEM 30 MG TABLET PO SCH ×3 (09:37→21:39)
[2021-07-01] MEDS: ZIPRASIDONE 20 MG/1 ML VIAL IM PRN (09:37)
[2021-07-01] MEDS: MEMANTINE 5 MG TABLET PER TUBE SCH ×2 (09:37→21:39)
[2021-07-01] MEDS ORDERED: DEXTROSE 10% 250 ML BAG IV PRN (10:30)
[2021-07-01] MEDS: DIGOXIN 0.25 MG TABLET PEG SCH (13:49)
[2021-07-01] MEDS: QUEtiapine 25 MG TABLET PO SCH ×2 (13:50→21:40)
[2021-07-01] MEDS: POTASSIUM BICARB EFFERVESCENT 20 MEQ TAB.EFF PER TUBE PRN (15:56)
[2021-07-02] MEDS: INSULIN LISPRO 100 UNIT/ML SUBCUT SCH ×4 (00:31→17:35)
[2021-07-02] MEDS: ZIPRASIDONE 20 MG/1 ML VIAL IM PRN ×3 (04:27→23:17)
[2021-07-02 07:02] LABS: Basophils % 0.2 % (0.0-0.8); Eosinophils # 0.1 10*3/uL (0.0-0.87); Eosinophils % 2.6 % (0.00-10.9); Hematocrit 25.3 VOL% (42.0-52.0); Hemoglobin 7.7 GM/DL (14.0-18.0); Immature Granulocytes % 0.6 %; Immature Granulocytes Absolute 0.03 #; Lymphocytes # 0.8 10*3/uL (1.4-4.0); Lymphocytes % 14.1 % (21.2-54.2); Mean Corpuscular HGB Conc 30.4 GM/DL (32-36); Mean Corpuscular Volume 86.1 FL (87-102); Mean Platelet Volume 10.5 FL (9.6-12.0); NRBC # 0.05 10*3/uL; Neutrophils % 74.5 % (38.7-73.9); Platelet Count 161 T/CUMM (130-400); Red Blood Count 2.94 MC/CUMM (3.8-5.5); Red Cell Distribution Width 19.1 % (9.3-17.3); White Blood Count 5.4 T/CUMM (4-12)
[2021-07-02 07:25] LABS: Albumin 2.4 G/DL (3.4-5.0); Bilirubin,Total 1.6 MG/DL (0.20-1.00); Calcium 8.8 MG/DL (8.5-10.1); Osmolality,Calculated 295.4 MOS/KG (273-304); Potassium 3.4 MMOL/L (3.5-5.1); Total Protein 6.1 G/DL (6.4-8.2)
[2021-07-02] MEDS: MEMANTINE 5 MG TABLET PER TUBE SCH ×2 (09:31→20:45)
[2021-07-02] MEDS: OMEPRAZOLE ODT 20 MG TABLET PO SCH ×2 (09:31→20:44)
[2021-07-02] MEDS: DILTIAZEM 30 MG TABLET PO SCH ×3 (09:31→20:44)
[2021-07-02] MEDS: AMOXICILLIN/CLAV 875 MG TABLET PEG SCH ×2 (09:31→20:44)
[2021-07-02] MEDS: QUEtiapine 25 MG TABLET PO SCH ×2 (09:31→20:51)
[2021-07-02] MEDS ORDERED: SODIUM CHLORIDE 0.9% 1,000 ML IV PRN (11:06)
[2021-07-02] MEDS: DIGOXIN 0.25 MG TABLET PEG SCH (13:57)
[2021-07-02] MEDS: POTASSIUM BICARB EFFERVESCENT 20 MEQ TAB.EFF PER TUBE PRN (22:36)
[2021-07-03] MEDS: INSULIN LISPRO 100 UNIT/ML SUBCUT SCH ×4 (00:25→17:48)
[2021-07-03] MEDS: POTASSIUM BICARB EFFERVESCENT 20 MEQ TAB.EFF PER TUBE PRN ×2 (01:16→04:41)
[2021-07-03 07:30] LABS: Basophils % 0.3 % (0.0-0.8); Eosinophils # 0.2 10*3/uL (0.0-0.87); Eosinophils % 2.5 % (0.00-10.9); Hematocrit 26.2 VOL% (42.0-52.0); Immature Granulocytes % 0.9 %; Immature Granulocytes Absolute 0.06 #; Lymphocytes # 0.9 10*3/uL (1.4-4.0); Lymphocytes % 13.9 % (21.2-54.2); Mean Corpuscular HGB Conc 30.5 GM/DL (32-36); Mean Corpuscular Volume 85.6 FL (87-102); Mean Platelet Volume 11.9 FL (9.6-12.0); Monocytes % 8.5 % (1.7-12.7); NRBC # 0.06 10*3/uL; Neutrophils % 73.9 % (38.7-73.9); Platelet Count 173 T/CUMM (130-400); Red Blood Count 3.06 MC/CUMM (3.8-5.5); Red Cell Distribution Width 19.5 % (9.3-17.3); White Blood Count 6.7 T/CUMM (4-12)
[2021-07-03] MEDS: MEMANTINE 5 MG TABLET PER TUBE SCH ×2 (08:06→21:17)
[2021-07-03] MEDS: DILTIAZEM 30 MG TABLET PO SCH ×3 (08:06→21:17)
[2021-07-03] MEDS: QUEtiapine 25 MG TABLET PO SCH ×2 (08:06→21:17)
[2021-07-03] MEDS: OMEPRAZOLE ODT 20 MG TABLET PO SCH ×2 (08:06→22:58)
[2021-07-03] MEDS: AMOXICILLIN/CLAV 875 MG TABLET PEG SCH ×2 (08:06→21:15)
[2021-07-03 08:09] LABS: Albumin 2.3 G/DL (3.4-5.0); Bilirubin,Total 1.3 MG/DL (0.20-1.00); Calcium 8.8 MG/DL (8.5-10.1); Osmolality,Calculated 280.7 MOS/KG (273-304); Potassium 3.9 MMOL/L (3.5-5.1); Total Protein 5.9 G/DL (6.4-8.2)
[2021-07-03] MEDS ORDERED: LACTULOSE 20 GM/30 ML UDCUP PO ONE (11:46)
[2021-07-03] MEDS: DIGOXIN 0.25 MG TABLET PEG SCH (12:29)
[2021-07-04] MEDS: INSULIN LISPRO 100 UNIT/ML SUBCUT SCH ×4 (00:27→19:22)
[2021-07-04 05:41] LABS: Basophils % 0.3 % (0.0-0.8); Eosinophils # 0.1 10*3/uL (0.0-0.87); Eosinophils % 1.8 % (0.00-10.9); Hematocrit 23.2 VOL% (42.0-52.0); Hemoglobin 7.2 GM/DL (14.0-18.0); Immature Granulocytes % 0.5 %; Immature Granulocytes Absolute 0.03 #; Lymphocytes # 0.9 10*3/uL (1.4-4.0); Lymphocytes % 13.1 % (21.2-54.2); Mean Corpuscular Volume 84.7 FL (87-102); Mean Platelet Volume 11.4 FL (9.6-12.0); Monocytes % 7.6 % (1.7-12.7); NRBC # 0.03 10*3/uL; Neutrophils % 76.7 % (38.7-73.9); Platelet Count 218 T/CUMM (130-400); Red Blood Count 2.74 MC/CUMM (3.8-5.5); Red Cell Distribution Width 18.9 % (9.3-17.3); White Blood Count 6.6 T/CUMM (4-12)
[2021-07-04 05:53] LABS: Albumin 2.3 G/DL (3.4-5.0); Bilirubin,Total 1.3 MG/DL (0.20-1.00); Calcium 8.9 MG/DL (8.5-10.1); Osmolality,Calculated 278.5 MOS/KG (273-304); Potassium 3.8 MMOL/L (3.5-5.1); Total Protein 5.9 G/DL (6.4-8.2)
[2021-07-04] MEDS: AMOXICILLIN/CLAV 875 MG TABLET PEG SCH ×2 (09:40→21:46)
[2021-07-04] MEDS: OMEPRAZOLE ODT 20 MG TABLET PO SCH ×2 (09:40→21:47)
[2021-07-04] MEDS: QUEtiapine 25 MG TABLET PO SCH ×2 (09:41→21:47)
[2021-07-04] MEDS: MEMANTINE 5 MG TABLET PER TUBE SCH ×2 (09:41→21:47)
[2021-07-04] MEDS: DILTIAZEM 30 MG TABLET PO SCH ×3 (09:41→21:47)
[2021-07-04] MEDS ORDERED: SODIUM CHLORIDE 0.9% 1,000 ML IV PRN (10:40)
[2021-07-04] MEDS: DIGOXIN 0.25 MG TABLET PEG SCH (15:49)
[2021-07-04 19:03] LABS: Hematocrit 27.2 VOL% (42.0-52.0); Hemoglobin 8.6 GM/DL (14.0-18.0)
[2021-07-05] MEDS: ZIPRASIDONE 20 MG/1 ML VIAL IM PRN (00:44)
[2021-07-05] MEDS: INSULIN LISPRO 100 UNIT/ML SUBCUT SCH ×4 (01:42→17:57)
[2021-07-05 07:13] LABS: Hematocrit 26.8 VOL% (42.0-52.0); Hemoglobin 8.7 GM/DL (14.0-18.0)
[2021-07-05 07:28] LABS: Calcium 8.6 MG/DL (8.5-10.1); Osmolality,Calculated 275.1 MOS/KG (273-304); Potassium 3.6 MMOL/L (3.5-5.1)
[2021-07-05] MEDS: AMOXICILLIN/CLAV 875 MG TABLET PEG SCH ×2 (11:54→21:13)
[2021-07-05] MEDS: QUEtiapine 25 MG TABLET PO SCH ×2 (11:54→21:14)
[2021-07-05] MEDS: DILTIAZEM 30 MG TABLET PO SCH ×3 (11:54→21:14)
[2021-07-05] MEDS: MEMANTINE 5 MG TABLET PER TUBE SCH ×2 (11:54→21:14)
[2021-07-05] MEDS: OMEPRAZOLE ODT 20 MG TABLET PO SCH ×2 (11:56→21:14)
[2021-07-05] MEDS: POTASSIUM BICARB EFFERVESCENT 20 MEQ TAB.EFF PER TUBE PRN (11:56)
[2021-07-05] MEDS: DIGOXIN 0.25 MG TABLET PEG SCH (13:18)
[2021-07-05 23:21] VITALS: BP 153/93
== END 2021-07-05 23:20 | DRG 377 ==
LOC: EDBD → EDSEX → EDUNIT# → N.ED 08:43 → N.EDINP 11:05 → SUATTDRO 11:05 → N.EDINP 16:19 → N.5E 16:20
PROVIDERS: ADMIT Internal Medicine; ATTEND Internal Medicine